=== PATIENT | female | born 1950 | race Caucasian/White ===

== ENCOUNTER → 2017-07-29 | Outpatient (CLI) | payer MEDICARE ==
[~2017-07-29] MED LIST: ESC10 PO; ESCI20TA38 PO; THYR30TA21 PO
== END ==
LOC: LAB 11:33
PROVIDERS: ATTEND Internal Medicine
DX: M81.0 Age-related osteoporosis without current pathological fracture (principal)
CPT/HCPCS: 36415; 82306

== ENCOUNTER → 2017-08-20 | Outpatient (CLI) | payer MEDICARE ==
[~2017-08-20] MED LIST changes: +ALEN70TA43 PO; +ASPI-757 PO; +ERGO500037 PO
== END ==
LOC: LAB 11:24
PROVIDERS: ATTEND Internal Medicine
DX: Z02.9 Encounter for administrative examinations, unspecified (principal)

== ENCOUNTER → 2017-08-20 | Outpatient (CLI) | payer MEDICARE | LOC: LAB 11:53 | PROVIDERS: ATTEND Internal Medicine | DX: E03.9 Hypothyroidism, unspecified (principal) | CPT/HCPCS: 36415; 84443 ==

== ENCOUNTER → 2017-09-03 | Outpatient (CLI) | payer MEDICARE ==
--- NOTE | 2017-09-04 09:06 | RADIOLOGY IMAGING REPORT ---
FACILITY: [facility] PATIENT NAME: CELENA SMITH : [id number] MR: [id number] V: [id number] EXAM DATE: ORDERING PHYSICIAN: KAYLIE NIEVES TECHNOLOGIST: Aruna Li PROCEDURE:BILATERAL DIGITAL SCREENING MAMMOGRAM WITH CAD ASSISTED INTERPRETATION & 3D TOMOSYNTHESIS COMPARISON:Prior mammograms 08/20/16, 08/03/14, 12/23/12, 12/16/12, 05/14/11 INDICATIONS:screening FINDINGS: Moderately heterogeneous fibroglandular tissue is seen throughout the breasts. The parenchymal pattern has remained stable allowing for difference in mammographic technique & patient positioning. There is no evidence of malignant appearing mass, malignant appearing calcifications or other secondary sign of malignancy in either breast. DIAGNOSTIC CATEGORY 1--NEGATIVE. RECOMMENDATIONS: ROUTINE MAMMOGRAM AND CLINICAL EVALUATION. IMPRESSION: BIRADS 1: Negative No significant abnormality is seen Dictated by: Vika Martin M.D. on 09/03/2017 at 16:11 Transcribed by: JANUSZ on 09/03/2017 at 16:21 Approved by: Vika Martin M.D. on 09/04/2017 at 9:05 [facility]
== END ==
LOC: MAMO 00:53
PROVIDERS: ATTEND Internal Medicine
DX: Z12.31 Encounter for screening mammogram for malignant neoplasm of breast (principal)
CPT/HCPCS: 77063; 77067

== ENCOUNTER → 2018-08-24 | Outpatient (CLI) | payer MEDICARE | LOC: LAB 15:35 | PROVIDERS: ATTEND Internal Medicine | DX: E03.9 Hypothyroidism, unspecified (principal) | CPT/HCPCS: 36415; 84443 ==

== ENCOUNTER → 2018-08-25 | Outpatient (CLI) | payer MEDICARE ==
--- NOTE | 2018-08-25 10:47 | RADIOLOGY IMAGING REPORT ---
FACILITY: [facility] [place] PATIENT NAME: Mirna Harris : 1950 MR: [id number] V: [id number] EXAM DATE: ORDERING PHYSICIAN: KAYLIE NIEVES TECHNOLOGIST: Location: [facility] Patient: Mirna Harris : 1950 Visit/Account:[id number] Date of Sevice: 08/25/2018 DEXA Scan Clinical history: Osteoporosis. Comparison: DEXA scan from 05/13/2017. LUMBAR SPINE: The bone mineral density (BMD) measured from L1-L4 correlates with a Z-score of -2.1 and a T-score of -3 which is osteoporosis as defined by the World Health Organization. The corresponding risk of fra cture in the lumbar spine is 8 times increased compared with a young adult reference population. Thi s value has increased by 1.2 % since the prior study. More than 5% change is considered significant. HIP: Bone mineral density (BMD) measured in the LEFT total hip region correlates with a Z-score -2 and a T -score of -2.8 which is osteoporosis as defined by the World Health Organization. The corresponding risk of fracture in the hip is 68 times increased compared to a young adult reference population. Thi s value has increase by 3.1 % since the prior study. More than 5% change is considered significant. T score left femoral neck -2.5 Bone mineral density (BMD) measured in the Femoral Neck region measures 0.693 g/cm?. IMPRESSION: 1. Lumbar spine: Osteoporosis. There has been 1.2% increase in the bone mineral density since the p revious exam. 2. Left Total Hip: Osteoporosis. There has been 3.1% increase in the bone mineral density since the previous exam. 3. Femoral Neck: Bone Mineral Density is 0.693 g/cm? The next DEXA scan of this patient should include the following sites: L1-L4 and the left hip. FRAX? WHO Fracture Risk Assessment Tool link: <http://www.shef.ac.uk/FRAX/tool.jsp?locationValue=9> PLEASE NOTE: 1) The World Health Organization defines low BMD as follows: T-score Normal > -1 Osteopenia < -1 and > -2.5 Osteoporosis < -2.5 without fractures Established osteoporosis < -2.5 with fractures 2) In general, you may wish to consider: Diagnosis Treatment Follow-up DEXA Normal BMD Prevention 2-3 years Osteopenia Prevention/therapy 1-2 years Osteoporosis Therapy Yearly 3) Fracture risk estimated from the T-score is more accurate for vertebral fractures (often spontane ous) than for hip fractures. Report Dictated By: Vika Martin MD at 08/25/2018 10:40 AM Report E-Signed By: iVka Martin MD at 08/25/2018 10:42 AM WSN:[email or web address]
== END ==
LOC: RAD 08:57
PROVIDERS: ATTEND Internal Medicine
DX: M81.0 Age-related osteoporosis without current pathological fracture (principal)
CPT/HCPCS: 77080

== ENCOUNTER 2018-09-10 09:35 | Outpatient (RCR) | payer MEDICARE ==
--- NOTE | 2018-09-10 12:26 | Medical Nutrition Therapy ---
Nutrition/Food History Breakfast: yogurt, oatmeal, 16 oz 2% milk, 8 oz OJ Lunch: yogurt, 8 oz milk, fruit: prunes or apples Dinner: fish, turkey, starch, 8 oz milk Snacks: 2 pc Cheese Nutritional Education Nutrition Education Topic: Other (diet for osteoporosis) Learning Readiness: Eager Teaching Methods: Discussion, Handout Response to Teaching: Verbalize understanding Teaching Recipient: Patient Nutrition Counseling: Pt states had dx ospoporosiss and concerned that diet is inadequate. [place] [address] [place] 2000/day. Reviewed high Vid D foods and why people have lower Vit D levels at our [place]. Reviewed typical diet intake. Pt stated she thought she was lactose intolerant but had been drinking milk with no issues and enjoys milk. Pt has also been adding yogurt and cheese to diet. Current intake, pt consuming ~ 1800 ml. Recommend pt consume 1200-1500ml calcuim/day. Reviewed list of calcium in foods and discussed alternative calcuim sources rather than dairy. Pt has shellfish allergies and all calcuim supplments that I reviewed were made from shellfish. Discussed calcium fortified foods and potential for getting calcium from shellfish in thewe products. Recommend cont to obtain calcuim from food sources. Nutrition Monitoring & Eval RD Patient Assessment Time: [address] Assessment Type: RD Education Nutritional Comment: provided 45 minutes MNT for osteoporosis. Copies To Copies to: KAYLIE NIEVES MD ; KRISTAL SHEARER Sep 10, 2018 12:02
== END 2018-10-15 ==
LOC: DIET 09:35
PROVIDERS: ATTEND Internal Medicine
DX: M81.0 Age-related osteoporosis without current pathological fracture (principal); Z71.3 Dietary counseling and surveillance
CPT/HCPCS: 97802

== ENCOUNTER → 2018-09-20 | Outpatient (CLI) | payer MEDICARE ==
--- NOTE | 2018-09-21 10:47 | RADIOLOGY IMAGING REPORT ---
FACILITY: [facility] PATIENT NAME: CELENA SMITH : [id number] MR: [id number] V: [id number] EXAM DATE: [id number] ORDERING PHYSICIAN: KAYLIE NIVEES TECHNOLOGIST: Juliana Card PROCEDURE:BILATERAL DIGITAL SCREENING MAMMOGRAM WITH CAD ASSISTED INTERPRETATION & 3D TOMOSYNTHESIS COMPARISON:Prior mammograms 09/03/17, 08/20/16, 08/03/14, 12/23/12, 12/16/12. INDICATIONS:screening FINDINGS: The breasts are heterogeneously dense which can obscure small masses. The parenchymal pattern has remained stable allowing for difference in mammographic technique & patient positioning. DIAGNOSTIC CATEGORY 1--NEGATIVE. RECOMMENDATIONS: ROUTINE MAMMOGRAM AND CLINICAL EVALUATION. IMPRESSION: BIRADS 1: Negative. No significant abnormality is seen. Dictated by: Vika Martin M.D. on 09/20/2018 at 18:22 Transcribed by: JANUSZ on 09/21/2018 at 8:13 Approved by: Vika Martin M.D. on 09/21/2018 at 10:46 [facility]
== END ==
LOC: MAMO 01:00
PROVIDERS: ATTEND Internal Medicine
DX: Z12.31 Encounter for screening mammogram for malignant neoplasm of breast (principal)
CPT/HCPCS: 77063; 77067